=== PATIENT | female | born 1995 | race Caucasian/White ===

== ENCOUNTER 2020-07-06 10:03 | Emergency (ER) | payer SELFPAY ==
[~2020-07-06] VITALS: Ht 165.1 cm; Wt 70.5 kg
[2020-07-06 10:07] VITALS: TEMP 98.6
[2020-07-06] MEDS ORDERED: NAPROSYN500 MG PO (12:17)
[2020-07-06] MEDS ORDERED: FLEXERIL 1010 MG/TAB PO (12:17)
[2020-07-06] MEDS ORDERED: NORCO 325 MG-51 TAB PO (12:17)
[2020-07-06 12:29] VITALS: BP 108/63; PULSE 85
== END 2020-07-06 13:02 | disposition home or self-care (01) ==
LOC: COL.ER 10:03
DX: M54.6 Pain in thoracic spine (principal)
CPT/HCPCS: J1885; J2360

== ENCOUNTER 2021-05-17 09:41 | Emergency (ER) | payer SELFPAY ==
[~2021-05-17] VITALS: Ht 165.1 cm; Wt 72.7 kg
[~2021-05-17 09:41] MED LIST: FLEXERIL 1010 MG/TAB PO; NAPROSYN500 MG PO; NORCO 325 MG-51 TAB PO
[2021-05-17 10:03] LABS: COLLECTION METHOD CLEAN CATCH
[2021-05-17 10:10] LABS: MUCOUS Present (NOT PRESENT); PH 6 (5-8); URINE APPEARANCE Hazy (CLEAR/HAZY); URINE BACTERIA Rare /hpf (NONE SEEN); URINE BILIRUBIN Negative (NEGATIVE); URINE BLOOD Negative (NEGATIVE); URINE COLOR Yellow (YELLOW); URINE GLUCOSE Negative (NEGATIVE); URINE KETONE Trace (NEGATIVE); URINE LEUKOCYTE ESTERASE Negative (NEGATIVE); URINE NITRATE Negative (NEGATIVE); URINE PROTEIN(semi-quant) Negative (NEGATIVE); URINE RBC 0-2 /hpf (0-2); URINE UROBILINOGEN Negative (NEGATIVE)
[2021-05-17 10:32] LABS: BASO % 0.7 % (0.0-2.0); EOS # 0.1 K/mm3 (0.0-0.7); EOS % 1.1 % (0.0-4.0); GRAN # 3.6 K/mm3 (1.4-6.5); GRAN % 63.9 % (42.2-75.2); HEMATOCRIT 37.3 % (37.0-47.0); HEMOGLOBIN 12.3 g/dl (12.5-16.0); LYMPH # 1.6 K/mm3 (1.2-3.4); LYMPH % 27.6 % (20.0-51.0); MEAN CELL VOLUME 84 fl (80.0-100.0); MEAN CORPUSCULAR HEMOGLOBIN 28 pg (27-31); MEAN CORPUSCULAR HGB CONC 33 g/dl (33.0-37.0); MEAN PLATELET VOLUME 9.3 fl (7.4-10.4); MONO # 0.4 K/mm3 (0.1-0.6); MONO % 6.5 % (1.7-9.3); PLATELET COUNT 223 K/mm3 (130-400); RED BLOOD COUNT 4.42 M/mm3 (4.10-5.30); REDCELL DISTRIBUTION WIDTH-CV 13.1 % (11.5-14.5)
[2021-05-17 10:54] LABS: ALBUMIN 4.1 gm/dL (3.5-5.0); BILIRUBIN,TOTAL 0.6 mg/dL (0.2-1.2); C-REACTIVE PROTEIN 0.03 mg/dL (0.00-0.50); CREATININE, serum 0.84 mg/dL (0.57-1.11); POTASSIUM 4.2 mmol/L (3.5-4.5); TOTAL PROTEIN 7.1 gm/dL (6.2-8.1)
[2021-05-17 13:24] VITALS: BP 114/71; PULSE 62; TEMP 98.7
== END 2021-05-17 13:25 | disposition home or self-care (01) ==
LOC: COL.ER 09:41
PROVIDERS: Family Medicine; Physician Assistant
DX: R10.2 Pelvic and perineal pain (principal); K59.09 Other constipation; Z98.51 Tubal ligation status
CPT/HCPCS: J1885; J2405; J7030